=== PATIENT | male | born 2000 | race Caucasian/White ===

== ENCOUNTER 2018-04-08 21:11 | Emergency (ER) | payer OTHER ==
[~2018-04-08] VITALS: Ht 172.7 cm; Wt 65.8 kg
[2018-04-08 21:15] VITALS: Ht 172.7 cm; Wt 65.8 kg
[2018-04-08 22:36] VITALS: BP 130/81
== END 2018-04-08 22:36 | disposition home or self-care (01) ==
LOC: ED 21:11
DX: S83.094A Other dislocation of right patella, initial encounter (principal); Y93.72 Activity, wrestling; Y92.89 Other specified places as the place of occurrence of the external cause; Y99.8 Other external cause status
CPT/HCPCS: J1885; Q0092

== ENCOUNTER 2019-07-07 09:03 | Emergency (ER) | payer OTHER ==
[~2019-07-07] VITALS: Ht 165.1 cm; Wt 66.7 kg
[2019-07-07 09:07] VITALS: BP 133/80; Ht 165.1 cm; Wt 66.7 kg
== END 2019-07-07 10:14 | disposition home or self-care (01) ==
LOC: ED 09:03
DX: S93.402A Sprain of unspecified ligament of left ankle, initial encounter (principal); W01.0XXA Fall on same level from slipping, tripping and stumbling without subsequent striking against object, initial encounter; Y93.89 Activity, other specified; Y92.89 Other specified places as the place of occurrence of the external cause; Y99.8 Other external cause status

== ENCOUNTER 2021-01-12 09:38 | Emergency (ER) | payer OTHER ==
[~2021-01-12] VITALS: Ht 167.6 cm; Wt 68.0 kg
[2021-01-12 10:07] VITALS: Ht 167.6 cm; Wt 68.0 kg
[2021-01-12 10:57] VITALS: BP 138/75
== END 2021-01-12 10:57 | disposition home or self-care (01) ==
LOC: ED 09:38
DX: L73.8 Other specified follicular disorders (principal)